=== PATIENT | male | born 1965 | race Caucasian/White ===

== ENCOUNTER 2021-09-14 13:36 | Emergency (ER) | payer BC ==
[~2021-09-14] VITALS: Ht 190.5 cm; Wt 99.8 kg
[2021-09-14 13:44] VITALS: BP_SYST 110
[2021-09-14] MEDS ORDERED: ASPIRIN 81 MG TAB.CHEW PO ONE (14:30)
[2021-09-14] MEDS ORDERED: NACL 0.9% 1,000 ML IV ONE (14:30)
[2021-09-14 14:51] LABS: BASOPHILS # (AUTO) 0.1 K/uL (0.0-0.2); EOSINOPHILS # (AUTO) 0.2 K/uL (0.0-0.4); EOSINOPHILS % (AUTO) 3.3 % (0.0-4.0); HEMATOCRIT 47.3 % (36-54); HEMOGLOBIN 15.3 g/dL (14.0-18.0); LYMPHOCYTES # (AUTO) 1.5 K/uL (1.0-5.5); LYMPHOCYTES % (AUTO) 23.6 % (20.5-51.5); MEAN CORPUSCULAR HEMOGLOBIN 27 pg (27-31); MEAN CORPUSCULAR HGB CONC 32 % (32-36); MEAN CORPUSCULAR VOLUME 82 fL (79.0-98.0); MONOCYTES # (AUTO) 0.7 K/uL (0.0-1.0); MONOCYTES % (AUTO) 10.9 % (1.7-9.3); NEUTROPHILS # (AUTO) 3.9 K/uL (1.8-7.7); NEUTROPHILS % (AUTO) 61.2 % (40.0-70.0); PLATELET COUNT (AUTO) 261 K/uL (130-430); RED BLOOD CELL COUNT(AUTO) 5.77 MIL/uL (4.2-6.2); RED CELL DISTRIBUTION WIDTH 14.4 % (9.0-15.0); WHITE BLOOD COUNT (AUTO) 6.4 K/uL (4.8-10.8)
[2021-09-14] MEDS ORDERED: APIX5TAB PO (15:07)
[2021-09-14] MEDS ORDERED: AMIO200T66 PO (15:08)
[2021-09-14 15:09] LABS: CALCIUM 9.2 mg/dL (8.4-11.0); CREATININE 1.01 mg/dL (0.55-1.30); POTASSIUM 4.3 mmol/L (3.5-5.1)
[2021-09-14 15:13] LABS: TOTAL BILIRUBIN 0.7 mg/dL (0.0-1.0)
[2021-09-14] MEDS ORDERED: AMIODARONE HCL 200 MG TABLET PO ONE (16:00)
[2021-09-14] MEDS ORDERED: APIXABAN 2.5 MG TABLET PO ONE (16:00)
[2021-09-14 16:25] VITALS: BP_SYST 141
[2021-09-14] MEDS ORDERED: CARVEDILOL 6.25 MG TABLET (COREG) ONE (22:31)
== END 2021-09-14 16:25 | disposition home or self-care (01) ==
LOC: SED 13:36
DX: I48.91 Unspecified atrial fibrillation (principal); I10 Essential (primary) hypertension; Z88.0 Allergy status to penicillin; Z79.899 Other long term (current) drug therapy
CPT/HCPCS: 36415; 71045; 80053; 80061; 83880; 84484; 85025; 93005; 96360; 96361; 99285; J7030

== ENCOUNTER 2021-11-16 07:04 | Emergency (ER) | payer BC ==
[~2021-11-16] VITALS: Ht 182.9 cm; Wt 106.6 kg
[~2021-11-16 07:04] MED LIST: AMIO200T66 PO; APIX5TAB PO
--- NOTE | 2021-11-16 07:08 | NUR ---
Patient to ER bed 2 to gown for evaluation. Side rails up. Report given to JOSE PIPER.
[2021-11-16 07:10] VITALS: BP_SYST 167
--- NOTE | 2021-11-16 07:10 | NUR ---
EKG performed at by [facility]. Physician given copy of EKG for review.
--- NOTE | 2021-11-16 07:20 | NUR ---
JAIDA Boyer at bedside examining patient.
--- NOTE | 2021-11-16 07:34 | NUR ---
patient to ED at this time with complaints of "feeling like a fish is in my chest". patient is alert and oriented, NSR with AV block. patient has history of afib and two strokes according to patient. patient denies chest pain at this time. EKG completed, iv line inserted, labs drawn and sent. patient states his son is at his home with covid but isolating. patient denies sob.
[2021-11-16] MEDS ORDERED: KETOROLAC TROMETHAMINE 30 MG VIAL IVP ONE (07:45)
--- NOTE | 2021-11-16 07:45 | NUR ---
Labs drawn and sent to lab at this time, patient on ECG monitoring. patient is now complaining of chest pressure5/10. notified.
--- NOTE | 2021-11-16 07:52 | NUR ---
patient has on heart monitoring device on mid chest. patient states he is scheduled for cardiac ablation in two weeks. ketoralac and asa ordered and administered at this time.
[2021-11-16] MEDS: ASPIRIN 81 MG TAB.CHEW PO ONE ×2 (07:53→07:57)
--- NOTE | 2021-11-16 07:58 | NUR ---
MD gave orders to withhold asa due to patient taking home blood thinners. asa held
[2021-11-16 08:27] LABS: CALCIUM 9.3 mg/dL (8.4-11.0); CREATININE 1.07 mg/dL (0.55-1.30); POTASSIUM 4.1 mmol/L (3.5-5.1)
[2021-11-16 08:28] LABS: BASOPHILS # (AUTO) 0.2 K/uL (0.0-0.2); BASOPHILS % (AUTO) 2.8 % (0.0-2.0); EOSINOPHILS # (AUTO) 0.2 K/uL (0.0-0.4); EOSINOPHILS % (AUTO) 2.9 % (0.0-4.0); HEMATOCRIT 45.1 % (36-54); HEMOGLOBIN 14.4 g/dL (14.0-18.0); LYMPHOCYTES # (AUTO) 0.6 K/uL (1.0-5.5); LYMPHOCYTES % (AUTO) 10.7 % (20.5-51.5); MEAN CORPUSCULAR HEMOGLOBIN 26 pg (27-31); MEAN CORPUSCULAR HGB CONC 32 % (32-36); MEAN CORPUSCULAR VOLUME 82 fL (79.0-98.0); MONOCYTES # (AUTO) 0.4 K/uL (0.0-1.0); MONOCYTES % (AUTO) 6.6 % (1.7-9.3); NEUTROPHILS # (AUTO) 4.6 K/uL (1.8-7.7); PLATELET COUNT (AUTO) 243 K/uL (130-430); RED BLOOD CELL COUNT(AUTO) 5.49 MIL/uL (4.2-6.2); RED CELL DISTRIBUTION WIDTH 14.2 % (9.0-15.0)
[2021-11-16 08:45] LABS: ALBUMIN 3.8 g/dL (3.4-4.8); TOTAL BILIRUBIN 0.4 mg/dL (0.0-1.0)
--- NOTE | 2021-11-16 10:06 | NUR ---
PATIENT VERBALIZING PAIN RELIEF AT THIS TIME. SB ON THE MONITOR, WILL CONTINUE TO MONITOR PATIENT.
--- NOTE | 2021-11-16 11:22 | NUR ---
PATIENT CONDITION GOES UNCHANGED, VSS, NO PAIN, SB ON THE MONITOR, SECOND TROPONIN PENDING AT THIS TIME. MD NOTIFIED
--- NOTE | 2021-11-16 11:53 | NUR ---
PATIENT DISCHARGED IN STABLE CONDITION, VSS, SB ON THE MONITOR. PATIENT TO FOLLOW UP WITH [employer]Y [employer]ERTER OR FOLLOWING CARIDIOLOGY. IV REMOVED AND D/C'D WITH .
--- NOTE | 2021-11-16 11:54 | NUR ---
Patient given written and verbal discharge instructions and verbalizes understanding. ER MD discussed with patient the results and treatment provided. Patient in stable condition. ID arm band removed. IV catheter removed intact and dressing applied, no active bleeding. no Rx of given. Patient educated on pain management and to follow up with PMD. Pain Scale . Opportunity for questions provided and answered. Medication side effect fact sheet provided.
[2021-11-16 11:57] VITALS: BP_SYST 130
== END 2021-11-16 11:58 | disposition home or self-care (01) ==
LOC: SED 07:04
DX: M94.0 Chondrocostal junction syndrome [Tietze] (principal); I48.0 Paroxysmal atrial fibrillation; I10 Essential (primary) hypertension; Z79.01 Long term (current) use of anticoagulants; Z88.0 Allergy status to penicillin
CPT/HCPCS: 36415; 71045; 80053; 83880; 84484; 85025; 93005; 96374; 99285; J1885